=== PATIENT | female | born 1980 | race Caucasian/White ===

== ENCOUNTER 2019-07-05 21:20 | Emergency (ER) | payer OTHER ==
[~2019-07-05] VITALS: Ht 149.9 cm; Wt 89.8 kg
[~2019-07-05 21:20] MED LIST: FIORICET1 TAB PO; MOTRIN800 MG PO; NITROSTAT0.4 MG SL; NORCO1 TA2 PO
[2019-07-05 21:24] VITALS: Ht 149.9 cm; Wt 89.8 kg
[2019-07-06 01:18] VITALS: BP 117/82
== END 2019-07-06 01:18 | disposition home or self-care (01) ==
LOC: ED 21:20
DX: G43.909 Migraine, unspecified, not intractable, without status migrainosus (principal)
CPT/HCPCS: J1200; J2765; J7030